=== PATIENT | female | born 1970 | race Caucasian/White ===

== ENCOUNTER 2016-04-20 11:58 | Day surgery (SDC) | payer BC ==
[~2016-04-20 11:58] MED LIST: HEMOCYTE324 MG PO; MAXIMUM D3 PO; PRILOSEC40 MG PO; SURBEX/C1 TAB PO; WELLSR150 PO
== END 2016-04-21 23:50 | disposition home or self-care (01) ==
LOC: SDC 11:58
PROVIDERS: Podiatrist
PROC: 0LQP0ZZ Repair Left Lower Leg Tendon, Open Approach (ICD-10-PCS; principal; 2016-04-20 13:45)
DX: S86.012A Strain of left Achilles tendon, initial encounter (principal); K21.9 Gastro-esophageal reflux disease without esophagitis; F41.9 Anxiety disorder, unspecified; F32.9 Major depressive disorder, single episode, unspecified; M19.90 Unspecified osteoarthritis, unspecified site; Z79.899 Other long term (current) drug therapy; Z98.51 Tubal ligation status; Z96.653 Presence of artificial knee joint, bilateral; Z90.49 Acquired absence of other specified parts of digestive tract; G89.18 Other acute postprocedural pain; J44.9 Chronic obstructive pulmonary disease, unspecified
CPT/HCPCS: 84703; 96372; 99283; A9270-GY; C1776; J0690; J2250; J2405; J2710; J3010; Q4100